=== PATIENT | male | born 1975 | race Caucasian/White ===

== ENCOUNTER 2020-08-29 05:25 | Emergency (ER) | payer SELFPAY ==
[~2020-08-29] VITALS: Ht 170.2 cm; Wt 93.0 kg
[2020-08-29 05:25] VITALS: BP 128/79
--- NOTE | 2020-08-29 05:25 | NUR ---
SEE COMPLETE ASSESSMENT.
--- NOTE | 2020-08-29 05:26 | NUR ---
PT SAUL ALS. TAKEN TO BED 3
[2020-08-29] MEDS ORDERED: NACL 0.9% 1,000 ML IV ONE (05:35)
[2020-08-29] MEDS ORDERED: ONDANSETRON 4 MG/2 ML VIAL IVP ONE (05:35)
--- NOTE | 2020-08-29 05:40 | NUR ---
LAB AT BEDSIDE.
[2020-08-29 05:51] LABS: BASOPHILS % (AUTO) 0.2 % (0.0-2.0); EOSINOPHILS % (AUTO) 0.1 % (0.0-4.0); HEMATOCRIT 47.3 % (36-52); HEMOGLOBIN 15.9 g/dL (12.0-18.0); LYMPHOCYTES % (AUTO) 17.2 % (20.5-51.1); MEAN CORPUSCULAR HEMOGLOBIN 29 pg (27-31); MEAN CORPUSCULAR HGB CONC 34 g/dL (33-37); MEAN CORPUSCULAR VOLUME 87.1 fL (80-94); MONOCYTES # (AUTO) 0.8 K/uL (0.8-1.0); MONOCYTES % (AUTO) 7.4 % (1.7-9.3); NEUTROPHILS # (AUTO) 8.6 K/uL (1.8-7.7); NEUTROPHILS % (AUTO) 75.1 % (42.2-75.2); PLATELET COUNT (AUTO) 225 K/uL (140-450); RED BLOOD CELL COUNT(AUTO) 5.43 MIL/uL (4.20-6.10); RED CELL DISTRIBUTION WIDTH 13.2 % (11.6-13.7); WHITE BLOOD COUNT (AUTO) 11.4 K/uL (4.8-10.8)
--- NOTE | 2020-08-29 06:04 | NUR ---
REMI ROCHA AT BEDSIDE.
[2020-08-29 06:11] LABS: ANION GAP 16.9 (8-16); CARBON DIOXIDE 24.2 mmol/L (21-32); CREATININE 1.2 mg/dL (0.6-1.3); POTASSIUM 3.1 mmol/L (3.5-5.1); TOTAL BILIRUBIN 0.9 mg/dL (0.0-1.0)
--- NOTE | 2020-08-29 06:23 | NUR ---
X-Ray at bedside.
--- NOTE | 2020-08-29 06:40 | NUR ---
Patient appears to be resting comfortably in bed. Vital Signs within normal limits. Respirations even and unlabored. PT STATES HE FEELS BETTER AND REQUESTING APPLE JUICE. ERMD OKAY TO GIVE FOOD/DRINK. PT REPOSITIONED FOR COMFORT AND WARM BLANKET PROVIDED.
--- NOTE | 2020-08-29 07:08 | NUR ---
REPORT GIVEN TO BRISA MYERS FOR CONTINUITY OF CARE.
--- NOTE | 2020-08-29 07:09 | NUR ---
REPORT RECIEVED FROM BRISA SOLARES. TRANSFER OF CARE RECIEVED.
--- NOTE | 2020-08-29 07:09 | NUR ---
Received report from BRISA Herbert. Transfer of care at this time.
--- NOTE | 2020-08-29 07:12 | NUR ---
PT CALM AND COOPERATIVE AT THE MOMENT. PT RESTING BEDSIDE. VITAL SIGNS STABLE. BED IN LOWEST POSITION. BEDSAILS X2 UP. PROVIDED PT WITH MASK. WILL CONTUINE TO MONITOT.
--- NOTE | 2020-08-29 07:38 | NUR ---
BLOOD CULTURES, UA, AND COVID KRISTIE WALKED OVER TO LAB AND HANDED TO MARKELL MANCIA TECH
[2020-08-29 07:58] LABS: APPEARANCE,URINE CLEAR (CLEAR); BILIRUBIN,URINE NEGATIVE (NEGATIVE); BLOOD, URINE TRACE-I (NEGATIVE); COLOR,URINE YELLOW (YELLOW); LEUKOCYTE ESTERASE ,URINE NEGATIVE (NEGATIVE); NITRITE, URINE NEGATIVE (NEGATIVE); UGLUCOSE NEGATIVE (NEGATIVE)
--- NOTE | 2020-08-29 08:00 | NUR ---
PT PROVIDED WITH DESTINEYO MAREN.
[2020-08-29 08:13] LABS: RBC,URINE 0-5 /HPF (0-5); WBC,URINE 0-5 /HPF (0-5)
[2020-08-29 08:18] LABS: BARBITURATE, URINE NEGATIVE ng/ml (NEG <=200); BENZODIAZEPINE, URINE NEGATIVE ng/mL (NEG <=200); CANNABINOID, URINE NEGATIVE ng/mL (NEG <=50); COCAINE, URINE NEGATIVE ng/mL (NEG <=300); OPIATE, URINE NEGATIVE ng/mL (NEG <=2000); PHENCYCLIDINE SCREEN,URINE NEGATIVE ng/mL (NEG <=25)
[2020-08-29 08:20] LABS: C-REACTIVE PROTEIN QUANT < 0.2 mg/dL (0.0-0.9)
--- NOTE | 2020-08-29 08:42 | NUR ---
Dr. Upton at pt bedside for re-evaluation.
[2020-08-29] MEDS ORDERED: FURO-572 PO (09:04)
[2020-08-29 09:28] VITALS: BP 132/87
--- NOTE | 2020-08-29 09:28 | NUR ---
Patient does not wish to proceed with medical care recommended by DR. ROCHA. Patient given information related to possible complications, up to and including , which could occur as a result of leaving hospital at this time. Patient verbalizes understanding of risks involved leaving against medical advice. Patient has signed AMA form.
== END 2020-08-29 09:28 | disposition left against medical advice (07) ==
LOC: MED 05:25
DX: J81.1 Chronic pulmonary edema (principal); R09.02 Hypoxemia; F15.10 Other stimulant abuse, uncomplicated; Z79.899 Other long term (current) drug therapy
CPT/HCPCS: 36415; 71045; 80053; 80305; 81001; 83605; 83690; 83880; 84484; 85025; 86140; 87040; 87426; 93005; 96361; 96374; 99285; G0482; J2405; J7030